=== PATIENT | female | born 1995 | race African-American/Black ===

== ENCOUNTER 2019-07-12 17:46 | Emergency (ER) | payer MEDICAID ==
[~2019-07-12] VITALS: Ht 165.1 cm; Wt 91.0 kg
[2019-07-12] MEDS ORDERED: KEPP500 PO (18:13)
[2019-07-13] MEDS ORDERED: MORPHINE SULFATE 4 MG/ML CPJ (NOT FOR IM USE) IV STA (00:24)
[2019-07-13] MEDS ORDERED: METOCLOPRAMIDE HCL 10MG/2ML VIAL IV STA (00:24)
[2019-07-13] MEDS ORDERED: FAMOTIDINE 20MG/2ML VIAL IV STA (00:24)
[2019-07-13] MEDS ORDERED: SODIUM CHLORIDE 0.9% 1,000 ML IV ONE (00:24)
[2019-07-13 00:36] LABS: BASOPHILS % 0.3 % (0.0-2.0); EOSINOPHILS % 0.5 % (0.0-5.0); HEMOGLOBIN. 12.4 g/dL (12.0-16.0); LYMPHOCYTES % 19.4 % (20.0-50.0); MEAN CORPUSCULAR HEMOGLOBIN 30.6 pg (28.0-32.0); MEAN CORPUSCULAR VOLUME 89.3 fL (81.0-99.0); MONOCYTES % 9.8 % (2.0-8.0); PLATELET 258 x1000/uL (130-400); RED BLOOD CELL COUNT 4.03 mill/uL (4.2-5.4); RED CELL DISTRIBUTION WIDTH 15.1 % (11.6-14.6)
[2019-07-13 00:41] LABS: CHLORIDE 104 mEq/L (98-107)
[2019-07-13 03:43] VITALS: BP 112/36
[2019-07-13 03:58] LABS: CLARITY URINE CLEAR (CLEAR); COLOR URINE YELLOW (YELLOW); KETONES URINE 1+ (NEGATIVE); LEUKOCYTE ESTERASE URINE NEGATIVE (NEGATIVE); NITRITE URINE NEGATIVE (NEGATIVE); OCCULT BLOOD URINE NEGATIVE (NEGATIVE); PH URINE 6.5 (4.5-8.0); PROTEIN URINE NEGATIVE (NEGATIVE); SPECIFIC GRAVITY URINE 1.012 (1.005-1.030)
== END 2019-07-13 03:44 | disposition home or self-care (01) ==
LOC: ER 17:46
DX: O26.891 Other specified pregnancy related conditions, first trimester (principal); R10.13 Epigastric pain; O99.321 Drug use complicating pregnancy, first trimester; F12.10 Cannabis abuse, uncomplicated; Z3A.01 Less than 8 weeks gestation of pregnancy; Z88.8 Allergy status to other drugs, medicaments and biological substances
CPT/HCPCS: 36415; 76705; 76801; 76817; 80053; 81003; 81025; 83690; 84702; 85025; 86850; 86900; 86901; 96374; 99284; J2765; J7030; Z7610

== ENCOUNTER 2019-11-19 09:08 | Emergency (ER) | payer MEDICAID ==
[~2019-11-19] VITALS: Ht 165.1 cm; Wt 102.0 kg
[~2019-11-19 09:08] MED LIST: KEPP500 PO
[2019-11-19 12:19] VITALS: BP 115/71
== END 2019-11-19 12:21 | disposition home or self-care (01) ==
LOC: ER 09:08
DX: S80.12XA Contusion of left lower leg, initial encounter (principal); X58.XXXA Exposure to other specified factors, initial encounter; Y93.89 Activity, other specified; Y92.89 Other specified places as the place of occurrence of the external cause; Y99.8 Other external cause status; F12.10 Cannabis abuse, uncomplicated; Z88.2 Allergy status to sulfonamides
CPT/HCPCS: 73610; 99283